=== PATIENT | female | born 1980 | race Hispanic/Latino ===

== ENCOUNTER 2016-09-13 16:57 | Emergency (ER) | payer OTHER, BC ==
[~2016-09-13] VITALS: Ht 152.4 cm; Wt 55.0 kg
[2016-09-13] MEDS ORDERED: TRAMADOL HYDROC50 MG PO (18:06)
[2016-09-13] MEDS ORDERED: MOTRIN800 MG PO (18:06)
[2016-09-13] MEDS ORDERED: FLEXERIL PO (18:06)
[2016-09-13 18:10] VITALS: BP 120/69
== END 2016-09-13 18:10 | disposition home or self-care (01) | DRG 563 ==
LOC: ED 16:57
DX: S39.012A Strain of muscle, fascia and tendon of lower back, initial encounter (principal); X50.1XXA Overexertion from prolonged static or awkward postures, initial encounter; Y93.F2 Activity, caregiving, lifting; Y92.210 Daycare center as the place of occurrence of the external cause

== ENCOUNTER 2017-04-11 09:44 | Emergency (ER) | payer BC ==
[~2017-04-11] VITALS: Ht 152.4 cm; Wt 60.0 kg
[~2017-04-11 09:44] MED LIST: FLEXERIL PO; MOTRIN800 MG PO; TRAMADOL HYDROC50 MG PO
[2017-04-11] MEDS ORDERED: TAM75CAP PO (10:18)
[2017-04-11] MEDS ORDERED: TESSALON PER100 MG PO (10:18)
[2017-04-11] MEDS ORDERED: MOTRIN800 MG PO (10:18)
[2017-04-11] MEDS ORDERED: AFRIN 12 HOUR0.05 % (10:18)
[2017-04-11 10:28] VITALS: BP 105/61
== END 2017-04-11 10:28 | disposition home or self-care (01) | DRG 153 ==
LOC: ED 09:44
DX: J11.1 Influenza due to unidentified influenza virus with other respiratory manifestations (principal); R05 Cough; R50.9 Fever, unspecified; R52 Pain, unspecified